=== PATIENT | female | born 1965 | race Caucasian/White ===

== ENCOUNTER 2018-03-22 10:41 | Inpatient (IN) | payer BC ==
--- OUTSIDE RECORDS SUMMARY | 2018-03-22 11:11 | XMS REPORT ---
:1965 External Reference #:[id number] Author Organization [employer] Address [address] [place] [address] [place] [address] Phone [phone] Care Team Providers Name Role Phone Adilene Carter MD Primary Care Physician Unavailable Payers Type Date Identification Payment Subscriber Numbers Provider Health Maintenance Effective: Policy Number: [facility] ([facility]) 06/29/2016 [id number] [employer] Group Number: [id number] [address] [address] PayID: [id number] [place] [id number] Medigap Part B Expires: 06/28/2012 Policy Number: Fer Gay [id number] Group Number: [id number] [address] PayID: [id number] [place] [address] Problems Description No Information Family History Date Family Member(s) Problem(s) Comments General Cancer General Thyroid Disease Social History Type Date Description Comments Marital Status 2 Times Lives With Occupation [place] ETOH Use Rarely consumes wine Smoking Patient has never smoked Recreational Drug Use Denies Drug Use Daily Caffeine Does Not Consume Caffeine Exercise Type/Frequency Exercises regularly Allergies, Adverse Reactions, Alerts Date Description Reaction Status Severity Comments 03/19/2010 No Known Drug Allergy active Medications Medication Date Status Form Strength Qnty SIG Indications Ordering Provider Cephalexin 03/09/ Active Tablets 500mg 21tabs 1 by mouth Siomara 2017 three B. times a [place], day [employer] Vitamin D 00// Active 1000units Unknown 0000 two daily Valacyclovir / Active Tablets 500mg 90tabs 1 by mouth Unknown HCL 0000 every day Progesterone / Active Capsules 100mg 90caps 1 by mouth Unknown Micronized 0000 every day Magnesium / Active Tablets 1 by mouth Unknown 0000 every day Multi Vitamin 00/ Active Tablets 1 by mouth Unknown 0000 every day Aviane 11/12/ Hx Tablets 0.1-20mg-m 28tabs 1 po qd Hortensia 2010 - cg Kelli, 02/10/ Ginny, FACP 2010 Famciclovir 09/01/ Hx Tablets 250mg 60tabs Take One Hortensia 2010 - Tablet By Kelli, 12/01/ Mouth Ginny, FACP 2013 Twice Daily Famvir 03/19/ Hx Tablets 250mg 1 tablet Hortensia 2009 - twice a Kelli, 09/01/ day as Ginny, FACP 2010 needed Retin-A / Hx Cream 0.025% 45G apply Unknown 0000 - sparingly to 2013 affected areas at bedtime Divigel / Hx Gel 0.25mg/0.2 as Unknown 0000 5GM directed Estradiol / Hx Patches 0.075mg/24 1 patch Unknown 0000 Weekly HR twice a week Immunizations CPT Code Status Date Vaccine Lot # [id number] Given 04/11/2009 Influenza Virus 3Yrs & Over Vital Signs Date Vital Result Comment 03/09/2018 Heart Rate 72 /min Respiratory Rate 16 /min Body Temperature 97.2 F 02/17/2018 Height 64.5 inches 5'4.50" Weight 145.00 lb Heart Rate 62 /min BP Systolic 114 mmHg BP Diastolic 80 mmHg Respiratory Rate 16 /min Body Temperature 97.8 F BMI (Body Mass Index) 24.5 kg/m2 12/02/2013 Height 64 inches 5'4" Weight 136.00 lb Heart Rate 76 /min BMI (Body Mass Index) 23.3 kg/m2 11/06/2010 Height 63.75 inches 5'3.75" Weight 129.00 lb Heart Rate 62 /min BP Systolic Sitting 110 mmHg BP Diastolic Sitting 70 mmHg Body Temperature 99.1 F BMI (Body Mass Index) 22.3 kg/m2 09/16/2010 Weight 129.00 lb Heart Rate 70 /min BP Systolic 104 mmHg BP Diastolic 70 mmHg 08/08/2010 Weight 129.00 lb Heart Rate 84 /min BP Systolic 138 mmHg BP Diastolic 82 mmHg 04/02/2010 Weight 125.00 lb Heart Rate 80 /min BP Systolic 118 mmHg BP Diastolic 78 mmHg Results Description No Information Procedures Date CPT Code Description Status 03/05/2018 41911 Fluoroscopic Guidance For Cent Completed 03/05/2018 76757 Biopsy/Excision Deep Axillary Node(S) Completed 03/05/2018 11815 Insertion Tunneled Cent Venous Cathr W Subcut Port 5 Completed Yrs Or Oldr 03/05/2018 14285 Mastectomy Partial Completed 03/05/2018 Mammogram Completed 02/22/2018 76559 ECHO Transthorasic Realtime 2D W Doppler & Color Flow Completed Hosp 02/11/2018 Mammogram Completed 02/08/2018 Mammogram Completed 11/06/2010 56399 Endometrial Sampling W Or W/O Endocervical BX W Or W/O Completed Cerv Dilat 09/13/2010 Colonoscopy Completed 04/12/2010 Mammogram Completed 04/12/2009 Mammogram Completed 04/11/2009 88070 EKG Tracing & Interpretation Completed Encounters Type Date Location Provider CPT E/M Dx Office Visit 02/17/2018 [facility], 53544 C50.411 11:00a Harris HINDS Office Visit 02/19/2016 [facility] [address] G43.109 1:18p Office Visit 12/02/2013 [facility], 41495 845.00 3:00p C.M.A. M.D. Office Visit 09/16/2010 DO Not Use [facility] Leadperson-Javi Estrella, 17518 780.79 8:30a N.P. 627.2 626.4 Office Visit 08/08/2010 4:00p DO Not Use [facility] Leadperson-Lynncharlie Pereira 88976 784.0 M.D., FACP 780.79 564.1 625.3 Office Visit 04/02/2010 9:15a DO Not Use [facility] Leadperson-Javi Pereira 27398 780.79 M.D., FACP 564.1 Office Visit 05/16/2009 11:45a DO Not Use [facility] Leadperson-Javi Pereira, 48350 272.0 M.D., FACP Office Visit 04/11/2009 1:15p DO Not Use Alisha Pereira, 73877 V72.31 M.D., FACP 272.4 787.20 285.9 V04.81 Office Visit 08/16/2007 11:00a DO Not Use Lolly Martínez, 33501 789.07 [place] Leadperson-Javi Gross 780.79 Office Visit 07/08/2007 9:30a DO Not Use [facility] Leadperson-Lynn Deb Estrella, N.P. 75212 462 465.9 Office Visit 01/18/2007 1:30p DO Not Use Deb Estrella, 25150 625.9 [facility] Leadperson-Lynn N.P. Office Visit 04/16/2006 3:15p DO Not Use Hortensia Pereira M.D., 25646 V72.31 [place] Leadperson-Lynn FACP V76.41 Plan of Care Future Appointment(s):03/15/2018 2:45 pm - [facility] MD at [facility]03/09/2018 - Siomara Kam, NPC50.411 Malig neoplm of upper-outer quadrant of right female breastFollow up:HAS APPT 03/15T81.4xxA Infection following a procedure, initial encounter
--- OUTSIDE RECORDS SUMMARY | 2018-03-22 11:11 | XMS REPORT ---
:1965 External Reference #:[id number] Author Organization [employer] Address [address] [place] [address] [place] [address] Phone [phone] Care Team Providers Name Role Phone Adilene Carter MD Primary Care Physician Unavailable Payers Type Date Identification Payment Subscriber Numbers Provider Health Maintenance Effective: Policy Number: [facility] [place] 06/29/2016 [id number] [employer] Group Number: [id number] [address] [address] PayID: [id number] [place] [id number] Medigap Part B Expires: 06/28/2012 Policy Number: Fer Gay [id number] Group Number: [id number] [address] PayID: [id number] [place] [address] Problems Description No Information Family History Date Family Member(s) Problem(s) Comments General Cancer General Thyroid Disease Social History Type Date Description Comments Marital Status 2 Times Lives With Occupation [place] ETOH Use Rarely consumes wine Smoking Patient [...] 2017 three B. times a [place], day [employer] Vitamin D 00// Active 1000units Unknown 0000 [...] Hortensia 2010 - cg Kelli, 02/10/ [facility] Famciclovir 09/01/ Hx Tablets 250mg 60tabs Take One Hortensia 2010 - Tablet By Kelli, 12/01/ Mouth Ginny, FACP 2013 Twice Daily Famvir 03/19/ Hx Tablets 250mg 1 tablet Hortensia 2009 - twice a Kelli, 09/01/ day as Ginny, [facility] 2010 needed Retin-A / Hx Cream 0.025% 45G apply Unknown 0000 - sparingly to 2013 affected areas at bedtime Divigel / Hx Gel 0.25mg/0.2 as Unknown 0000 5GM directed Estradiol / Hx Patches 0.075mg/24 1 patch Unknown 0000 Weekly HR twice a week Immunizations CPT Code Status Date Vaccine Lot # [id number] Given 04/11/2009 Influenza Virus 3Yrs & Over Vital Signs Date Vital Result Comment 03/11/2018 Heart Rate 90 /min Respiratory Rate 16 /min Body Temperature 98.4 F 03/09/2018 Heart Rate 72 /min Respiratory Rate [...] 118 mmHg BP Diastolic 78 mmHg Results Test Date Test Result H/L Range Note Laboratory test 03/05/2018 Surgical Pathology SEE RESULT BELOW 1 finding 1 SEE RESULT BELOW Name: CHERRYBEL PASCUAL : [address]: [facility] MD Acct: [id number] Unit: [id number] AGE: 52 Location: OR Re03/05/18 SEX: F Status: REG SDC SPEC: [id number] SIMONE: 03/05/18-[address] [facility] [address]: [facility]id MD REQ: [id number] RECD: 03/05/18 STATUS: BRYSON VALENTIN DR: Rubio Garzon, [employer] _ ORDERED: LEVEL 4, LEVEL 5/3, IMMUNO-FIRST FINAL DIAGNOSIS 1. Breast, right, needle localization excision: -- Invasive ductal adenocarcinoma of breast, with: Size: 16 mm. See comment. Overall [place] grade: 3/3 (8/9 points). Tubule formation: 2. Nuclear grade: 3. Mitotic count: 3. Margins: Tumor approaches to within 1 mm of the mid superior anterior margin (slide C) and to within 2 mm of the inferior anterior margin (slide D). All other margins are clear by greater than 5 mm. Lymphovascular invasion: Not seen. Skin: N/A. Chest-wall / pectoralis involvement: N/A. Ductal carcinoma in situ (DCIS): Focally present. Size: 2 mm. Architectural pattern: micropapillary and solid Nuclear grade: 2 Necrosis present: not seen Margins: All margins clear of DCIS by greater than 5 mm ER, GA, Her2/dimitri by immunohistochemistry with appropriate controls: ER: Negative. GA: Negative. Her2/dimitri: Negative (1+). See comment. Microcalcifications: Not identified. Other findings: None. pTNM histopathologic stage: pT 1C N 0 M N/A. 2. Breast, right, additional tissue 2 per medial from first specimen, excision: -- Benign breast tissue. -- No neoplasia identified. 3. Axilla, right, non-sentinel lymph nodes, excision: -- Four lymph nodes with no tumor seen (0/4). CONTINUED ON NEXT PAGE DEPARTMENT OF PATHOLOGY, [address] [place] [address] Rubio Razo M.D. Director [facility] # [id number] RUN DATE: 03/10/18 [facility] LAB LIVE PAGE 2 Patient: CHERRYBELWOODROW GARNER [id number] (Continued) FINAL DIAGNOSIS (Continued) 3. Axilla, right, sentinel lymph node biopsy: -- One lymph node with no tumor seen (0/1). See comment. Comment: The microscopic features are most indicative of a single multilobed primary tumor rather than multiple foci of tumor as suggested by gross examination only. This is reflected in the final measurements and T stage of this malignancy. Hormone receptor studies reported in part 1 are from previous biopsy case [id number]. Dr. Garcia has reviewed this case and concurs. Per sentinel lymph node protocol multiple level sections as well as him histochemical stains for pankeratin with appropriate control were performed on part 4 and support the above rendered diagnosis. PRE-OPERATIVE DIAGNOSIS Malignant neoplasm of upper-outer quadrant of right female breast, 1) usual markings 2) usual markings GROSS DESCRIPTION 1. The specimen is received fresh labeled, Excision of Right Breast Cancer , Usual Markings, and consists of an 8.9 x 6.0 x 3.6 cm yellow-pink ovoid portion of fibrofatty soft tissue with three attached sutures which are designated as follows: long- lateral, short-superior and medium-medial. The specimen is partially surfaced by a 2.7 x 0.5 cm dominguez-white skin ellipse on the inferolateral surface. There is a localization wire entering the specimen through the skin ellipse and exiting the specimen at the superior anterolateral surface. There is a 0.8 x 0.7 x 0.6 cm dominguez-pink well defined indurated nodule within the superior to mid specimen associated with the localization wire, 0.4 cm from the supra-medial margin. Additionally, there is a 0.8 x 0.8 x 0.5 cm seemingly discrete dominguez- pink nodule, 0.1 CONTINUED ON NEXT PAGE DEPARTMENT OF PATHOLOGY, [address] [place] [address] Rubio Razo M.D. Director [facility] # [id number] RUN DATE: 03/10/18 [facility] LAB LIVE PAGE 3 Patient: BEL GAY [id number] (Continued) GROSS DESCRIPTION (Continued) GROSS DESCRIPTION (Continued) cm supra-medial from the previously described nodule and 0.1 cm from the supra-medial margin. The remaining cut surface consists predominantly of yellow focally hemorrhagic lobulated adipose tissue with mild interspersed dominguez-white fibrous tissue. The specimen is inked as follows: lateral half-green, medial half-blue and deep-black, serially sectioned from superior to inferior and retail account representative sections are submitted in cassettes A through J to include indurated nodule in cassettes D and E and discrete nodule in cassettes C and D. 2. The specimen is received in formalin labeled, Additional Tissue Supra- Medial from First Specimen, Usual Markings, and consists of a 5.3 x 4.2 x 3.1 cm yellow ovoid portion of fibrofatty soft tissue with three attached sutures which are designated as follows: long-lateral, short-superior and medium-medial. The lateral margin is presumed the false margin. The cut surface consists predominantly of yellow lobulated adipose tissue with a small amount of interspersed focally dense fibrous tissue. A discrete lesion is not identified. The true margin is inked as follows: superior anterior-blue, inferior anterior-green and deep-black, the specimen is inked from superior to inferior and retail account representative sections are submitted in cassettes A through J. 3. The specimen is received in formalin labeled, Non-Moffat Lymph Nodes Right Breast, and consists of a 2.8 x 2.7 x 0.8 cm aggregate of yellow irregular adipose tissue fragments. Within the aggregate there are a few brown-sun possible lymph nodes ranging from 0.4 cm to 1.2 cm in greatest dimension. The lymph nodes are entirely submitted in cassettes A through C as follows: A-two whole lymph nodes, B-one bisected lymph node and C-one trisected lymph node. 4. The specimen is received in formalin labeled, Moffat Lymph Node Right Breast, and consists of a 0.9 x 0.5 x 0.5 cm dominguez-sun lymph node with abundant adherent yellow fat. The lymph node is trisected and entirely submitted in one cassette. Signed by and Reported on: Rubio Razo MD 06/15 1108 END OF REPORT DEPARTMENT OF PATHOLOGY, [address] [place] [address] Rubio Razo M.D. Director [facility] # [id number] Procedures Date CPT Code Description Status 03/05/2018 11018 Fluoroscopic Guidance For Cent Completed 03/05/2018 44710 Biopsy/Excision Deep Axillary Node(S) Completed 03/05/2018 96249 Biopsy/Excision Deep Axillary Node(S) Completed 03/05/2018 57861 Insertion Tunneled Cent Venous Cathr W Subcut Port 5 Completed Yrs Or Oldr 03/05/2018 03275 Insertion Tunneled Cent Venous Cathr W Subcut Port 5 Completed Yrs Or Oldr 03/05/2018 95338 Mastectomy Partial Completed 03/05/2018 95478 Mastectomy Partial Completed 03/05/2018 Mammogram Completed 02/22/2018 68942 ECHO Transthorasic Realtime 2D W Doppler & Color Flow Completed Hosp 02/11/2018 Mammogram Completed 02/08/2018 Mammogram Completed 11/06/2010 05743 Endometrial Sampling W Or W/O Endocervical BX W Or W/O Completed Cerv Dilat 09/13/2010 Colonoscopy Completed 04/12/2010 Mammogram Completed 04/12/2009 Mammogram Completed 04/11/2009 50659 EKG Tracing & Interpretation Completed Encounters Type Date Location Provider CPT E/M Dx Office Visit 02/17/2018 [facility], 72670 C50.411 11:00a Harris HINDS Office Visit 02/19/2016 [place] [address] G43.109 1:18p Office Visit 12/02/2013 [facility], 18495 845.00 3:00p C.M.A. M.D. Office Visit 09/16/2010 DO Not Use Services Coordinator[facility] Deb Estrella, 52492 780.79 8:30a N.P. 627.2 626.4 Office Visit 08/08/2010 4:00p DO Not Use Services [facility] Hortensia Pereira, 83096 784.0 M.D., FACP 780.79 564.1 625.3 Office Visit 04/02/2010 9:15a DO Not Use Services Coord[facility] Hortensia Pereira, 03610 780.79 M.D., FACP 564.1 Office Visit 05/16/2009 11:45a DO Not Use Services [facility] Hortensia Pereira, 03591 272.0 M.D., FACP Office Visit 04/11/2009 1:15p DO Not Use Services Coord[facility] Hortensia Pereira, 17185 V72.31 M.D., FACP 272.4 787.20 285.9 V04.81 Office Visit 08/16/2007 11:00a DO Not Use Lolly Martínez, 31073 789.07 Services Coordinator[facility] M.D. 780.79 Office Visit 07/08/2007 9:30a DO Not Use Services Coord[facility] Deb Estrella, N.P. 57490 462 465.9 Office Visit 01/18/2007 1:30p DO Not Use Deb Estrella 63767 625.9 Services Coordinator[facility] N.P. Office Visit 04/16/2006 3:15p DO Not Use Hortensiamikayla Pereira, M.D., 42533 V72.31 [facility] V76.41 Plan of Care No Information Available
--- OUTSIDE RECORDS SUMMARY | 2018-03-22 11:11 | XMS REPORT ---
:1965 External Reference #:[id number] Author Organization [employer] Address [address] [place] [address] [place] [address] Phone [phone] Care Team Providers Name Role Phone Adilene Carter MD Primary Care Physician Unavailable Payers Type Date Identification Payment Subscriber Numbers Provider Health Maintenance Effective: Policy Number: [facility] ([facility]) 06/29/2016 [id number] Victor Hugo Group Number: [id number] [address] [address] PayID: [id number] [place] [address] Medigap Part B Expires: 06/28/2012 Policy Number: Fer Gay [id number] Group Number: [id number] [address] PayID: [id number] [place] [address] Problems Description No Information Family History Date Family Member(s) Problem(s) Comments General Cancer General Thyroid Disease Social History Type Date Description Comments Marital Status 2 Times Lives With Occupation [employer] ETOH Use Rarely consumes wine Smoking Patient has never smoked Recreational Drug Use Denies Drug Use Daily Caffeine Does Not Consume Caffeine Exercise Type/Frequency Exercises regularly Allergies, Adverse Reactions, Alerts Date Description Reaction Status Severity Comments 03/19/2010 No Known Drug Allergy active Medications Medication Date Status Form Strength Qnty SIG Indications Ordering Provider Zofran Odt 03/11/ Active Tablets 4mg 12tabs 1 tab po q Mariajose Isidro 2018 Dispers 6 hr prn MD Kleber nausea Cephalexin 03/09/ Active Tablets 500mg 21tabs 1 by mouth Siomara 2018 three B. times a [place], day DAIRY CATTLE FARM WORKER Vitamin D / Active 1000units Unknown 0000 two daily Valacyclovir 00/00/ Active Tablets 500mg 90tabs 1 by mouth Unknown HCL 0000 every day Progesterone 00/ Active Capsules 100mg 90caps 1 by mouth Unknown Micronized 0000 every day Magnesium 00/00/ Active Tablets 1 by mouth Unknown 0000 every day Multi Vitamin 00/ Active Tablets 1 by mouth Unknown 0000 every day Aviane 11/12/ Hx Tablets 0.1-20mg-m 28tabs 1 po qd Hortensia 2010 - cg Kelli, 02/10/ MSoco, FACP 2010 Famciclovir 09/01/ Hx Tablets 250mg 60tabs Take One Hortensia 2010 - Tablet By Kelli, 12/01/ Mouth M.DIna, FACP 2013 Twice Daily Famvir 03/19/ Hx Tablets 250mg 1 tablet Hortensia 2009 - twice a Kelli, 09/01/ day as M.D., FACP 2010 needed Retin-A / Hx Cream 0.025% 45G apply Unknown 0000 - sparingly 2013 affected areas at bedtime Divigel / Hx Gel 0.25mg/0.2 as Unknown 0000 5GM directed Estradiol / Hx Patches 0.075mg/24 1 patch Unknown 0000 Weekly HR twice a week Immunizations CPT Code Status Date Vaccine Lot # [id number] Given 04/11/2009 Influenza Virus 3Yrs & Over Vital Signs Date Vital Result Comment 03/15/2018 Heart Rate 72 /min Respiratory Rate 16 /min Body Temperature 97.8 F 03/11/2018 Heart Rate 90 /min Respiratory Rate [...] 1 finding 1 SEE RESULT BELOW Name: BEL GAY : [address]: Mariajose Shahid MD Acct: [id number] Unit: [id number] AGE: 52 Location: OR Re03/05/18 SEX: F Status: REG SDC SPEC: [id number] SIMONE: 03/05/[address] [facility] [address]: Mariajose Shahid MD REQ: [id number] RECD: 03/05/180048 STATUS: BRYSON VALENTIN 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 Breast, right, needle localization excision: -- Invasive ductal adenocarcinoma of breast, with: Size: 16 mm. See comment. Overall [place] grade: 3/3 (8/9 points). Tubule formation: 2. [...] DCIS by greater than 5 mm ER, OH, Her2/dimitri by immunohistochemistry with appropriate controls: ER: Negative. OH: Negative. Her2/dimitri: Negative (1+). See comment. Microcalcifications: Not identified. Other findings: None. pTNM histopathologic stage: pT 1C N 0 M N/A. 2. Breast, right, additional tissue supra-medial from first specimen, excision: -- Benign breast tissue. -- No neoplasia identified. CONTINUED ON NEXT PAGE DEPARTMENT OF PATHOLOGY, [address] [place] [address] Rubio Razo M.D. Director [facility] # [id number] RUN DATE: 03/11/18 [facility] LAB LIVE PAGE 2 Patient: BEL GAY [id number] (Continued) FINAL DIAGNOSIS (Continued) 3. Axilla, right, non-sentinel lymph nodes, excision: -- Four lymph nodes with no tumor seen (0/4). 3. Axilla, right, sentinel lymph node biopsy: [...] 1 are from previous biopsy case [id number]. Dr. Garcia has reviewed this case and [...] dominguez-pink well defined indurated nodule within the CONTINUED ON NEXT PAGE DEPARTMENT OF PATHOLOGY, [address] [place] [address] Rubio Razo M.D. Director [facility] # [id number] RUN DATE: 03/11/18 [facility] LAB LIVE PAGE 3 Patient: BEL GAY [id number] (Continued) GROSS DESCRIPTION (Continued) GROSS DESCRIPTION (Continued) superior to mid specimen associated with the localization wire, 0.4 cm from the supra-medial margin. Additionally, there is a 0.8 x 0.8 x 0.5 cm seemingly discrete dominguez- pink nodule, 0.1 cm supra-medial from the previously described nodule and 0.1 cm from the supra-medial margin. The remaining cut surface consists predominantly of yellow focally hemorrhagic lobulated adipose tissue with mild interspersed dominguez-white fibrous tissue. The specimen is inked as follows: lateral half-green, medial half-blue and deep-black, serially sectioned from superior to inferior and clearance representative sections are submitted in cassettes A [...] is inked from superior to inferior and clearance representative sections are submitted in cassettes A through J. 3. The specimen is received in formalin labeled, Non-[place] Lymph Nodes Right Breast, and consists of [...] The specimen is received in formalin labeled, [place] Lymph Node Right Breast, and consists of a 0.9 x 0.5 x 0.5 cm dominguez-sun lymph node with abundant adherent yellow fat. The lymph node is trisected and entirely submitted in one cassette. Signed by and Reported on: Rubio Razo MD 1510 END OF REPORT DEPARTMENT OF PATHOLOGY, [address] [place] [address] Rubio Razo M.D. Director [facility] # [id number] Procedures Date CPT Code Description Status 03/05/2018 82315 Fluoroscopic Guidance For Cent Completed 03/05/2018 99112 Biopsy/Excision Deep Axillary Node(S) Completed 03/05/2018 06007 Biopsy/Excision Deep Axillary Node(S) Completed 03/05/2018 89518 Insertion Tunneled Cent Venous Cathr W Subcut Port 5 Completed Yrs Or Oldr 03/05/2018 39840 Insertion Tunneled Cent Venous Cathr W Subcut Port 5 Completed Yrs Or Oldr 03/05/2018 61714 Mastectomy Partial Completed 03/05/2018 73669 Mastectomy Partial Completed 03/05/2018 Mammogram Completed 02/22/2018 90643 ECHO Transthorasic Realtime 2D W Doppler & Color Flow Completed Hosp 02/11/2018 Mammogram Completed 02/08/2018 Mammogram Completed 11/06/2010 70825 Endometrial Sampling W Or W/O Endocervical BX W Or W/O Completed Cerv Dilat 09/13/2010 Colonoscopy Completed 04/12/2010 Mammogram Completed 04/12/2009 Mammogram Completed 04/11/2009 19911 EKG Tracing & Interpretation Completed Encounters Type Date Location Provider CPT E/M Dx Office Visit 02/17/2018 [facility], [address] C50.411 11:00a Harris HINDS Office Visit 02/19/2016 [facility] [address] G43.109 1:18p Office Visit 12/02/2013 [facility], 35219 845.00 3:00p C.M.A. MSoco Office Visit 09/16/2010 DO Not Use [employer] Deb Estrella 73664 780.79 8:30a N.P. 627.2 626.4 Office Visit 08/08/2010 4:00p DO Not Use [employer] Hortensia Pereira 58848 784.0 M.D., FACP 780.79 564.1 625.3 Office Visit 04/02/2010 9:15a DO Not Use [employer] Hortensia Pereira 14618 780.79 M.D., FACP 564.1 Office Visit 05/16/2009 11:45a DO Not Use [employer] [facility] Hortensia Pereira 25657 272.0 M.D., FACP Office Visit 04/11/2009 1:15p DO Not Use [employer] [place] 17074 V72.31 M.D., FACP 272.4 787.20 285.9 V04.81 Office Visit 08/16/2007 11:00a DO Not Use Lolly Martínez, 24601 789.07 [employer] BrandynDIna 780.79 Office Visit 07/08/2007 9:30a DO Not Use [employer] Deb Estrella, N.P. 54087 462 465.9 Office Visit 01/18/2007 1:30p DO Not Use Deb Estrella, 22596 625.9 [employer] N.P. Office Visit 04/16/2006 3:15p DO Not Use Hortensia Pereira M.D., 54258 V72.31 [employer] [facility] V76.41 Plan of Care Future Appointment(s):03/24/2018 8:30 am - Mariajose Shahid MD at [facility]03/15/2018 - Mariajose Shahid, MDC50.411 Malig neoplm of upper- outer quadrant of right female breastFollow up:1 week
--- OUTSIDE RECORDS SUMMARY | 2018-03-22 11:11 | XMS REPORT ---
:1965 External Reference #:[id number] Author Organization [employer] Address [address] [place] [address] [place] [address] Phone [phone] Care Team Providers Name Role Phone Adilene Carter MD Primary Care Physician Unavailable Payers Type Date Identification Payment Subscriber Numbers Provider Health Maintenance Effective: Policy Number: [facility] ([facility]) 06/29/2016 [id number] [employer] Group Number: [id number] [address] [address] PayID: [id number] [place] [address] Medigap Part B Expires: 06/28/2012 Policy Number: Fer Carey [id number] Group Number: [id number] [address] PayID: [id number] [place] [address] Problems Description No Information Family History Date Family Member(s) Problem(s) Comments General Cancer General Thyroid Disease Social History Type Date Description Comments Marital Status 2 Times Lives With Occupation [place] ETOH Use Rarely consumes wine Smoking Patient [...] 4mg 12tabs 1 tab po q Mariajose Pascual 2017 Dispers 6 hr prn MD Kleber nausea Vitamin D 00/00/ Active 1000units Unknown 0000 two daily Valacyclovir 00/00/ Active Tablets 500mg 90tabs 1 by mouth Unknown HCL 0000 every day Progesterone 0000/ Active Capsules 100mg 90caps 1 by mouth Unknown Micronized 0000 every day Magnesium 00/ Active Tablets 1 by mouth Unknown 0000 every day Multi Vitamin 00/ Active Tablets 1 by mouth Unknown 0000 every day Bactrim DS / Active Tablets 800-160mg 1 by mouth Unknown 0000 twice a day Align / Active Capsules 4mg 1 by mouth Unknown 0000 every day Cephalexin 03/09/ Hx Tablets 500mg 21tabs 1 by mouth Siomara 2017 three B. 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[place], day MOWER MECHANIC Aviane 11/12/ Hx Tablets 0.1-20mg-m 28tabs 1 po qd Hortensia 2010 - cg Kelli, 02/10/ MSoco, FACP 2010 Famciclovir 09/01/ Hx Tablets 250mg 60tabs Take One Hortensia 2010 - Tablet By Kelli, 12/01/ Mouth MSoco, FACP 2013 Twice Daily Famvir 03/19/ Hx Tablets 250mg 1 tablet Hortensia 2009 - twice a Kelli, 09/01/ day as M.Sunshine, FACP 2010 needed Retin-A / Hx Cream 0.025% 45G apply Unknown 0000 - sparingly 2013 affected areas at bedtime Divigel / Hx Gel 0.25mg/0.2 as Unknown 0000 5GM directed Estradiol / Hx Patches 0.075mg/24 1 patch Unknown 0000 Weekly HR twice a week Immunizations CPT Code Status Date Vaccine Lot # 62736 Given 04/11/2009 Influenza Virus 3Yrs & Over Vital Signs Date Vital Result Comment 03/22/2018 Heart Rate 76 /min BP Systolic 120 mmHg BP Diastolic 82 mmHg Respiratory Rate 18 /min Body Temperature 96.8 F 03/15/2018 Heart Rate 72 /min Respiratory Rate [...] finding 1 SEE RESULT BELOW Name: BEL CAREY : [address]: Mariajose Shahid MD Acct: [id number] Unit: [id number] AGE: 52 Location: OR Re03/05/18 SEX: F Status: REG 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 Breast, right, needle localization excision: -- Invasive ductal adenocarcinoma of breast, with: Size: 16 mm. See comment. Overall Painter grade: 3/3 (8/9 points). Tubule formation: 2. [...] DCIS by greater than 5 mm ER, NE, Her2/dimitri by immunohistochemistry with appropriate controls: ER: Negative. NE: Negative. Her2/dimitri: Negative (1+). See comment. Microcalcifications: Not identified. Other findings: None. pTNM histopathologic stage: pT 1C N 0 M N/A. 2. Breast, right, additional tissue supra-medial from first specimen, excision: -- Benign breast tissue. -- No neoplasia identified. CONTINUED ON NEXT PAGE DEPARTMENT OF PATHOLOGY, [address] [place] [address] Rubio Razo M.D. Director [facility] # [id number] RUN DATE: 03/11/18 [facility] LAB LIVE PAGE 2 Patient: CHERRYBELWOODROW GARNER [id number] (Continued) FINAL DIAGNOSIS (Continued) 3. Axilla, right, [...] 1 are from previous biopsy case [id number]. Dr. Garcia has reviewed this case and [...] CONTINUED ON NEXT PAGE DEPARTMENT OF PATHOLOGY, [address] [place] [address] Rubio Razo M.D. Director [facility] # [id number] RUN DATE: 03/11/18 [facility] LAB LIVE PAGE 3 Patient: HERMANBEL Carney PASCUAL [id number] (Continued) GROSS DESCRIPTION (Continued) GROSS DESCRIPTION (Continued) [...] hemorrhagic lobulated adipose tissue with mild interspersed dmoinguez-white fibrous tissue. The specimen is inked as follows: lateral half-green, medial half-blue and deep-black, serially sectioned from superior to inferior and energy conservation representative sections are submitted in cassettes A [...] is inked from superior to inferior and energy conservation representative sections are submitted in cassettes A through J. 3. The specimen is received in formalin labeled, Non-[place] Lymph Nodes Right Breast, and consists of [...] The specimen is received in formalin labeled, [place] Lymph Node Right Breast, and consists of a 0.9 x 0.5 x 0.5 cm dominguez-sun lymph node with abundant adherent yellow fat. The lymph node is trisected and entirely submitted in one cassette. Signed by and Reported on: Rubio Razo MD 1510 END OF REPORT DEPARTMENT OF PATHOLOGY, [address] [place] [address] Rubio Razo M.D. Director [facility] # [id number] Procedures Date CPT Code Description Status 03/05/2018 65606 Fluoroscopic Guidance For Cent Completed 03/05/2018 39240 Biopsy/Excision Deep Axillary Node(S) Completed 03/05/2018 73853 Biopsy/Excision Deep Axillary Node(S) Completed 03/05/2018 03786 Insertion Tunneled Cent Venous Cathr W Subcut Port 5 Completed Yrs Or Oldr 03/05/2018 15963 Insertion Tunneled Cent Venous Cathr W Subcut Port 5 Completed Yrs Or Oldr 03/05/2018 41489 Mastectomy Partial Completed 03/05/2018 85775 Mastectomy Partial Completed 03/05/2018 Mammogram Completed 02/22/2018 13711 ECHO Transthorasic Realtime 2D W Doppler & Color Flow Completed Hosp 02/11/2018 Mammogram Completed 02/08/2018 Mammogram Completed 11/06/2010 33210 Endometrial Sampling W Or W/O Endocervical BX W Or W/O Completed Cerv Dilat 09/13/2010 Colonoscopy Completed 04/12/2010 Mammogram Completed 04/12/2009 Mammogram Completed 04/11/2009 18991 EKG Tracing & Interpretation Completed Encounters Type Date Location Provider CPT E/M Dx Office Visit 02/17/2018 [facility], 56681 C50.411 11:00a Harris HINDS Office Visit 02/19/2016 [place] [address] G43.109 1:18p Office Visit 12/02/2013 [facility], 36776 845.00 3:00p C.M.A. M.D. Office Visit 09/16/2010 DO Not Use [employer] Estrella 71086 780.79 8:30a N.P. 627.2 626.4 Office Visit 08/08/2010 4:00p DO Not Use [facility] Pe[place] 26787 784.0 M.D., FACP 780.79 564.1 625.3 Office Visit 04/02/2010 9:15a DO Not Use [employer] Pereira 49026 780.79 M.D., FACP 564.1 Office Visit 05/16/2009 11:45a DO Not Use [employer] Pereira 90090 272.0 M.D., FACP Office Visit 04/11/2009 1:15p DO Not Use Lock ExpertAbel Pereira 49331 V72.31 M.D., FACP 272.4 787.20 285.9 V04.81 Office Visit 08/16/2007 11:00a DO Not Use Lolly Martínez, 87415 789.07 Alisha Gross 780.79 Office Visit 07/08/2007 9:30a DO Not Use [employer] Deb Varn, N.P. 11930 462 465.9 Office Visit 01/18/2007 1:30p DO Not Use Deb Estrella, 39153 625.9 [employer] N.P. Office Visit 04/16/2006 3:15p DO Not Use Hortensia Pereira M.D., 50916 V72.31 [employer] FACP V76.41 Plan of Care 03/15/2018 - Mariajose Shahid, MDC50.411 Malig neoplm of upper-outer quadrant of right female breastFollow up:1 week
--- NOTE | 2018-03-22 11:18 | ED ---
Shortness of Breath - HPI Summary HPI Summary: This pt is a 52 y/o female presenting to [facility] referred by Dr. Shahid c/o SOB and pain beginning from right side of neck radiating down her chest and down her back since yesterday s/p lumpectomy on March 05. Pt states her lumpectomy was done by Dr. Shaihd with an incision on the right side with anesthesia. Pt reports yesterday she began to have a sharp pain with deep breathing, specially behind her right shoulder blade. Additionally she notes SOB on minimal exertion. Pt denies baseline SOB on exertion. Denies nausea, vomiting, fever. She went to see Dr. Shahid this morning and was referred to the ED to rule out PE. Pt is currently on Bactrim (to prevent infection from lumpectomy), valacyclovir , and magnesium. She drinks wine occasionally. Denies tobacco or drug use. - History of Current Complaint Chief Complaint: EDShortnessOfBreath Time Seen by Provider: 03/22/18 11:03 Hx Obtained From: Patient Onset/Duration: Lasting Days - 1, Still Present Timing: Constant Current Severity: Mild Dyspnea At: Exertion Aggrevating Factors: Deep Breaths Alleviating Factors: Other - rest Associated Signs & Symptoms: Chest Pain Unrelated to Cough - and right shoulder blade pain - Allergy/Home Medications Allergies/Adverse Reactions: Allergies Allergy/AdvReac Type Severity Reaction Status Date / Time No Known Allergies Allergy Verified 03/22/18 10:57 Home Medications: Home Medications Magnesium Oxide TAB* [MagOx 400 TAB*] 400 mg PO DAILY 03/22/18 [History Confirmed 03/22/18] Multivitamins/Minerals TAB* [Theragran/minerals TAB*] 1 tab PO DAILY 03/22/18 [ History Confirmed 03/22/18] ValACYclovir (*) [Valtrex 1 GM(*)] 1 gm PO DAILY 03/22/18 [History Confirmed ] PMH/Surg Hx/FS Hx/Imm Hx Endocrine/Hematology History: Denies: Hx Diabetes, Hx Thyroid Disease Cardiovascular History: Denies: Hx Hypertension, Hx Pacemaker/ICD, Other Cardiovascular Problems/ Disorders Respiratory History: Denies: Hx Asthma, Hx Chronic Obstructive Pulmonary Disease (COPD), Other Respiratory Problems/Disorders GI History: Denies: Hx Hiatal Hernia, Hx Ulcer, Other GI Disorders History: Reports: Hx Kidney Stones - Lithotripsy 2008, last scan was negative for stone 09/13, Other Problems/Disorders - 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 Denies: Hx Renal Disease Musculoskeletal History: Denies: Other Musculoskeletal History Sensory History: Reports: Hx Contacts or Glasses - Glasses Denies: Hx Hearing Aid Opthamlomology History: Reports: Hx Contacts or Glasses - Glasses Neurological History: Reports: Hx Migraine Denies: Other Neuro Impairments/Disorders Psychiatric History: Reports: Hx Anxiety Denies: Hx Panic Disorder - Cancer History Cancer Type, Location and Year: RIGHT BREAST-NO TREATMENT AT THIS TIME Hx Chemotherapy: No Hx Radiation Therapy: No - Surgical History Surgery Procedure, Year, and Place: KIDNEY STONE REMOVAL, lithotripsy. Pyloric Stenonis 6 weeks Hx Anesthesia Reactions: Yes - Nausea Infectious Disease History: No Infectious Disease History: Denies: Hx Clostridium Difficile, Hx Hepatitis, Hx Human Immunodeficiency Virus (HIV), Hx of Known/Suspected MRSA, Hx Shingles, Hx Tuberculosis, Traveled Outside the [place] in Last 30 Days - Family History Known Family History: Positive: Hypertension - Mother, Respiratory Disease - Father with COPD Family History: Mother with CA - Social History Alcohol Use: Occasionally Alcohol Amount: TID Substance Use Type: Reports: None Hx Tobacco Use: No Smoking Status (MU): Never Smoked Tobacco Have You Smoked in the Last Year: No Review of Systems Negative: Fever, Chills Positive: Chest Pain Respiratory: Other - right shoulder blade pain with deep breathing Positive: Shortness Of Breath Negative: Vomiting, Nausea All Other Systems Reviewed And Are Negative: Yes Physical Exam - Summary Physical Exam Summary: VITAL SIGNS: Reviewed. GENERAL: Patient is a well-developed and nourished female who is lying comfortable in the stretcher. Patient is not in any acute respiratory distress. HEAD AND FACE: No signs of trauma. No ecchymosis, hematomas or skull depressions. No sinus tenderness. EYES: PERRLA, EOMI x 2, No injected conjunctiva, no nystagmus. EARS: Hearing grossly intact. Ear canals and tympanic membranes are within normal limits. MOUTH: Oropharynx within normal limits. NECK: Supple, trachea is midline, no adenopathy, no JVD, no carotid bruit, no c- spine tenderness, neck with full ROM. CHEST: Symmetric, no tenderness at palpation LUNGS: Clear to auscultation bilaterally. No wheezing or crackles. CVS: Regular rate and rhythm, S1 and S2 present, no murmurs or gallops appreciated. ABDOMEN: Soft, non-tender. No signs of distention. No rebound, no guarding, and no masses palpated. Bowel sounds are normal. EXTREMITIES: FROM in all major joints, no edema, no cyanosis or clubbing. NEURO: Alert and oriented x 3. No acute neurological deficits. Speech is normal and follows commands. SKIN: Dry and warm. Incision on the left side of the right breast, that is dry, clean, and intact. Triage Information Reviewed: Yes Vital Signs On Initial Exam: Initial Vitals Temp Pulse Resp BP Pulse Ox 97.2 F 81 16 132/82 99 03/22/18 10:52 03/22/18 10:52 03/22/18 10:52 03/22/18 10:52 03/22/18 10:52 Vital Signs Reviewed: Yes Diagnostics - Vital Signs Vital Signs Temp Pulse Resp BP Pulse Ox 03/22/18 10:52 97.2 F 81 16 132/82 99 - Laboratory Result Diagrams: 03/22/18 11:26 03/22/18 11:26 Lab Statement: Any lab studies that have been ordered have been reviewed, and results considered in the medical decision making process. - CT CTA Chest CT Interpretation: Positive (See Comments) - IMPRESSION: Filling defect is noted in the right posterior subsegmental pulmonary artery as well as in the left lower lobe posterior subsegmental artery consistent with bilateral pulmonary emboli. Postoperative changes in the right breast. Findings discussed with Dr. Tran at 13:[address] Interpretation Completed By: Radiologist - EKG 11:23 Cardiac Rate: NL - st 69 bpm EKG Rhythm: Sinus Rhythm EKG Interpretation: No ST elevations. EKG Comparison: No Significant Change - similar to prior on 02/19/16. Course/Dx - Course Assessment/Plan: Patient is a 52-year-old female who presents to the emergency department after she was transferred from Dr. Shahid's office complaining of shortness of breath and right-sided chest pain. The patient had a lumpectomy from the right breast on March 05, 2018 and since then the patient has developed the symptoms described above. Dr. Shahid sent the patient to the emergency department to rule out a pulmonary embolism. EKG shows a sinus rhythm at [address] elevations. Blood work without any significant abnormality except for a slight anemia, glucose 111 and CRP of 24.5. Chest CTA : IMPRESSION: Filling defect is noted in the right posterior subsegmental pulmonary artery as well as in the left lower lobe posterior subsegmental artery consistent with bilateral pulmonary emboli. Postoperative changes in the right breast. In the ED course the patient was given IV fluids 30 cc's per kg and Rocephin. I discussed the case with Dr. Mon, from the hospitalist services, who accepted the patient for admission. The patient continues to be hemodynamically stable alert and oriented 3. - Diagnoses Differential Diagnosis/HQI/PQRI: Positive: Asthma, Bronchitis, CHF, COPD Exacerbation, OR, Pneumonia, Pulmonary Embolism, Pulmonary Edema Provider Diagnoses: Pulmonary embolism - Physician Notifications Discussed Care of Patient With: Nilson Mon Time Discussed With Above Provider: 13:44 Instructed by Provider To: Other - Discussed pt care with Dr. Mon, hospitalist, who accepted the pt for admission. - Critical Care Time Critical Care Time: 75-104 min Discharge - Sign-Out/Discharge Documenting (check all that apply): Patient Departure - Admit to [facility] All imaging exams completed and their final reports reviewed: Yes - Discharge Plan Condition: Stable Disposition: ADMITTED TO [facility] - Billing Disposition and Condition Condition: STABLE Disposition: Admitted to [facility] - Attestation Statements Document Initiated by Dash: Yes Documenting Scribe: Kia Rolle Provider For Whom Dash is Documenting (Include Credential): Júnior Tran MD Scribe Attestation: Kia Carney, scribed for Júnior Tran MD on 03/24/18 at 0744. Scribe Documentation Reviewed: Yes Provider Attestation: The documentation as recorded by the Kia shelton accurately reflects the service I personally performed and the decisions made by me, Júnior Tran MD
[2018-03-22 11:40] LABS: ABS Basophils 0 10^3/ul (0-0.2); ABS Eosinophils 0.1 10^3/ul (0-0.6); ABS Lymphocytes 1.1 10^3/ul (1.0-4.8); ABS Monocytes 0.4 10^3/ul (0-0.8); ABS Neutrophils 4.7 10^3/ul (1.5-7.7); ABS Nucleated RBC 0 10^3/ul; Eosinophil % 1.1 % (0-6); Hematocrit 34 % (35-47); Hemoglobin 11.7 g/dl (12.0-16.0); Lymphocyte % 17.8 % (25-47); Mean Corpuscular HGB Conc 35 g/dl (31-36); Mean Corpuscular Hemoglobin 35 pg (27-31); Mean Corpuscular Volume 101 fL (80-97); Mean Platelet Volume 7.9 um3 (7.4-10.4); Nucleated Red Blood Cells % 0; Platelet Count 178 10^3/ul (150-450); Red Blood Count 3.33 10^6/ul (4.00-5.40); Red Cell Distribution Width 13 % (10.5-15); White Blood Count 6.4 10^3/ul (3.5-10.8)
[2018-03-22 11:58] LABS: EGFR Non-African American 80.6 (>60)
[2018-03-22] MEDS ORDERED: Iohexol 350* (CONTRAST) 500 ML MDV IV ONE (12:05)
[2018-03-22] MEDS ORDERED: NS 0.9% 1000 ML*IV.FLUID IV ONE (13:11)
[2018-03-22] MEDS: cefTRIAXone(*) 1 GM in NS 0.9% 50 ML* 50 ML IVPB ONE ×2 (13:29→13:37)
[2018-03-22] MEDS ORDERED: cefTRIAXone(*) 1 GM ADVAN/BAG ONE (13:34)
--- NOTE | 2018-03-22 13:45 | RAD ---
Status post lumpectomy in the right chest. Contrast: Administered 62.0 ml of OMNIPAQUE 350 mg/ml CTA of the chest performed after IV contrast administration. Coronal and sagittal reconstructed images were obtained. The pulmonary arterial tree is well opacified. There is a filling defect in the right posterior subsegmental lower lobe artery. Additional filling defect is noted in the subsegmental pulmonary artery in the left lower lobe. The upper lobes demonstrates no evidence of pulmonary embolus. The thoracic aorta demonstrates no evidence of thoracic aortic dissection. Inferior thyroid lobes are unremarkable. The lung dunn demonstrate small right pleural effusion with dependent changes in the lung dunn. No alveolar consolidation is noted. Postoperative changes are noted in the right breast from prior lumpectomy. IMPRESSION: Filling defect is noted in the right posterior subsegmental pulmonary artery as well as in the left lower lobe posterior subsegmental artery consistent with bilateral pulmonary emboli. Postoperative changes in the right breast. Findings discussed with Dr. Tran at 1341 hours
[2018-03-22 14:09] LABS: Urine Appearance Clear; Urine Blood 2+ (Negative); Urine Color Straw; Urine Ketones Negative (Negative); Urine Protein Negative (Negative); Urine Red Blood Cell 3+(>10/hpf) (Absent); Urine Specific Gravity 1.041 (1.010-1.030); Urine Urobilinogen Negative (Negative); Urine White Blood Cell Trace(0-5/hpf) (Absent)
[2018-03-22] MEDS ORDERED: Enoxaparin(*) 60 MG/0.6 ML SYR SUBCUT ONE (14:47)
[2018-03-22] MEDS ORDERED: Magnesium Hydroxide LIQ* 30 ML UDC PO PRN (14:55)
[2018-03-22] MEDS ORDERED: oxyCODONE TAB* 5 MG TAB PO ONE (15:36)
--- NOTE | 2018-03-22 15:46 | RAD ---
Indication: Pulmonary emboli, bilateral leg pain Duplex Doppler sonography of the deep venous system of both lower extremities was performed. Bilaterally the common femoral veins, proximal greater saphenous veins, proximal deep femoral veins, femoral veins, popliteal veins, posterior tibial veins and peroneal veins appear patent and compressible. IMPRESSION: NO EVIDENCE OF DEEP VENOUS THROMBOSIS OF EITHER LOWER EXTREMITY IS PRESENT.
--- NOTE | 2018-03-22 19:41 | HP ---
CC: Dr. Adilene Santana; Dr. Dunn * ADMISSION HISTORY AND PHYSICAL: DATE OF ADMISSION: 03/22/18 PRIMARY CARE PROVIDER: Dr. Adilene Santana. ONCOLOGIST: Dr. Dunn. HEALTHCARE PROXY: Her . CODE STATUS: Full. SOURCE OF INFORMATION: History obtained from interview with patient, review of past medical records. RELIABILITY: Good. CHIEF COMPLAINT: Chest pain, GERD. HISTORY OF PRESENT ILLNESS: This is a 52-year-old female, recently found to have a 7 mm right breast nodule on mammogram, status post biopsy in January 2017 , followed by lumpectomy on 03/05/18 after biopsy results returned triple negative invasive ductal breast cancer. There has been some difficulty with wound healing and what sounds to be surgical site infection, for which the patient was treated with a week of Keflex followed by transition to Bactrim since last . Otherwise, the patient has been in her usual state of health, however yesterday she noted right- sided chest pain that was worse with movement and worse with deep inspiration. It was severe enough that she could not sleep. The pain was radiating to her right shoulder blade and neck. She noted yesterday, it was harder to walk from her car to the office secondary to pain and increased shortness of breath. She has had pain at rest, but no shortness of breath at rest. She has been a marathon runner in the past and so , her difficulty in walking from and to the office was notable. She called Dr. Dunn's office who referred her to the emergency room, instead the patient went and saw Dr. Shahid who then referred her to the emergency room where she was seen by this author. Of note, the patient had an episode of rectal bleeding in 2010. This was thought to be secondary to external hemorrhoids. She again had painless rectal bleeding in 2017 and underwent another colonoscopy with Dr. Freeman and was found to have cecal polyps as well as internal hemorrhoids. The rectal bleeding is noted to be worse when she is constipated and/or dehydrated and improves with hydration and prune juice. She only notices bleeding when she is straining to have a bowel movement and none in between staining her clothes or otherwise. Her last episode of bleeding was approximately a week ago after she was put on narcotics for pain related to the lumpectomy. She notes the blood to be at most a tablespoon, although it is hard to quantify because it is in the water of the toilet bowl and never outside. PAST MEDICAL HISTORY: Includes: 1. Triple negative right invasive ductal breast cancer. 2. Anxiety. 3. HSV 1. 4. Nephrolithiasis. 5. Nephrolithiasis with history of lithotripsy. 6. She has noted over the last several days she has had cramping in bilateral lower extremities, which is new in the area of her calves. 7. History of rectal bleeding as outlined in the body of this report. 8. History of vitamin D deficiency. 9. 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 10. New history of migraines. MEDICATIONS: 1. Valacyclovir 1 g daily. 2. Magnesium 400 mg daily. 3. Bactrim since . ALLERGIES: None. FAMILY HISTORY: Mother with metastatic cancer, potentially lung. Maternal cousin with breast cancer. SOCIAL HISTORY: Drinks 3 to 4 alcoholic beverages per week. No history of tobacco. She is a Mobile executive marketing assistant. REVIEW OF SYSTEMS: As per HPI, includes rectal bleeding as well as chest pain radiating to the neck and shoulder blades, shortness of breath, pleurisy. Otherwise, all other systems negative. PHYSICAL EXAMINATION GENERAL: Well appearing, sitting up, interactive, pleasant, no apparent distress. VITAL SIGNS: In the emergency room, 125/78, heart rate is 82, respiratory rate is between 15 and 23. She is 98% on room air. T-max 97.2. HEENT: Oropharynx is clear. She has moist mucous membranes. Sclerae are anicteric. LUNGS: Clear to auscultation. HEART: She has regular rate and rhythm. No murmurs, rubs, or gallops. She has an incision on her right breast. No surrounding erythema. No discharge. ABDOMEN: Soft, nontender, nondistended. EXTREMITIES: Warm and well perfused without pain. NEUROLOGIC: She is alert and oriented x3. Cranial nerves II through XII are intact. LABORATORY DATA: Hemoglobin 11.7, platelets 178, white blood cell count 6.4. Creatinine 0.76. Lactic acid 0.6. CRP is 24. BNP is 50. IMAGING: Reviewed. CTA chest and thorax, filling defect is noted in the right posterior subsegmental pulmonary artery as well as in the left lower lobe posterior segmental artery consistent with bilateral pulmonary emboli, postoperative changes in the right breast. ASSESSMENT AND PLAN: This is a 52-year-old female with recent diagnosis of right invasive ductal carcinoma, status post lumpectomy on 03/05/18, now presenting with shortness of breath, pleuritic chest pain followed by bilateral pulmonary embolism. 1. Bilateral pulmonary embolism. Discussed with Dr. Mcknight. I will admit this patient to his service, start on Lovenox. It has been a significant amount of time clearing the patient's history of rectal bleeding. This does found to be associated with her internal hemorrhoids as it is always worsening with dehydration and constipation and never present in its absence. We will proceed to start this patient on 1 mg/kg of Lovenox b.i.d. and institute a bowel regimen. She has currently had no blood over the last week. Additional changes were made by Dr. Mcknight. I will check CBC tomorrow. Also, bilateral lower extremity Dopplers given bilateral PEs as well as cramping she has been experiencing over the last several days. 2. Rectal bleeding as noted above. Maintain aggressive bowel regimen. Recheck CBC tomorrow. 3. Surgical site infection, appears to be improving, although not at baseline. She was switched from Keflex to Bactrim a week ago. She received a dose of ceftriaxone in the emergency room. I will order for tomorrow. 4. Constipation as indicated above. Aggressive bowel regimen. 5. DVT prophylaxis. Lovenox in addition to above. TIME SPENT: Greater than 45 minutes were spent on the admission of this patient , of which greater than half was spent [id number] with the patient. [id number]/[facility] #: [id number] ELSY
[2018-03-22] MEDS ORDERED: Melatonin 3 MG TAB PO ONE (20:25)
[2018-03-22] MEDS ORDERED: oxyCODONE TAB* 5 MG TAB ONE (20:25)
[2018-03-22] MEDS ORDERED: Apixaban* 5 MG TAB PO ONE (21:00)
[2018-03-22] MEDS ORDERED: HYDROmorphone INJ1* 1 MG/ML SYRINGE ONE (21:45)
[2018-03-22] MEDS: Melatonin 3 MG TAB PO SCH (22:51)
[2018-03-23] MEDS: HYDROmorphone INJ1* 1 MG/ML SYRINGE IV PRN ×4 (00:23→05:36)
[2018-03-23] MEDS: NS 0.9% 1000 ML* 1,000 ML IV SCH ×2 (00:30→08:31)
[2018-03-23] MEDS: Ondansetron INJ* 2 MG/ML VIAL IV PRN ×2 (02:35→08:03)
[2018-03-23] MEDS ORDERED: Enoxaparin(*) 60 MG/0.6 ML SYR SUBCUT SCH (03:00)
[2018-03-23] MEDS: Acetaminophen TAB* 325 MG PO PRN (08:15)
[2018-03-23] MEDS: Magnesium Oxide TAB* 400 MG PO SCH (08:16)
[2018-03-23] MEDS: Multivitamins/Minerals TAB PO SCH (08:16)
[2018-03-23] MEDS: ValACYclovir (*) 1 GM TAB PO SCH (08:16)
[2018-03-23] MEDS: Docusate CAP* 100 MG PO SCH (08:16)
[2018-03-23] MEDS: oxyCODONE TAB* 5 MG TAB PO PRN ×2 (09:50→19:27)
--- NOTE | 2018-03-23 11:29 | PN ---
Progress Note - Progress Note Date of Service: 03/23/18 SOAP: Subjective: []Admitted yesterday afternoon with new PEs. Pain with any movement and addition of IV dilaudid overnight helps with pain but causing a lot of nausea. Pain occurs with movement in bed, walking, and any increased resp. effort. Pain slightly diminished with PO oxycodone. Nausea improved following zofran. No BM today but passing gas. Medicaitons: Acetaminophen (Tylenol Tab*) 650 mg PO Q4H PRN PRN Reason: FEVER/PAIN Last Admin: 03/23/18 08:15 Dose: 650 mg Docusate Sodium (Colace Cap*) 200 mg PO DAILY [facility] Last Admin: 03/23/18 08:16 Dose: 200 mg Enoxaparin Sodium (Lovenox(*)) 100 mg SUBCUT DAILY [facility] Enoxaparin Sodium (Lovenox(*)) 60 mg SUBCUT Q12H [facility] Stop: 03/23/18 16:00 Ceftriaxone Sodium 1 gm/ (Sodium Chloride) 50 mls @ 200 mls/hr IVPB Q24H [facility] Sodium Chloride (Ns 0.9% 1000 Ml*) 1,000 mls @ 125 mls/hr IV PER RATE [facility] Stop: 03/23/18 22:59 Last Admin: 03/23/18 08:31 Dose: 125 mls/hr Lorazepam (Ativan Tab(*)) 0.5 mg PO Q4H PRN PRN Reason: ANXIETY Magnesium Hydroxide (Milk Of Magnesia Liq*) 30 ml PO Q4H PRN PRN Reason: CONSTIPATION Magnesium Oxide (Magox 400 Tab*) 400 mg PO DAILY [facility] Last Admin: 03/23/18 08:16 Dose: 400 mg Melatonin (Melatonin) 3 mg PO BEDTIME [facility] Last Admin: 03/22/18 22:51 Dose: Not Given Morphine Sulfate (Morphine Inj ((Syringe))*) 2 mg IV Q2H PRN PRN Reason: PAIN Multivitamins/Minerals (Theragran/Minerals Tab*) 1 tab PO DAILY [facility] Last Admin: 03/23/18 08:16 Dose: 1 tab Ondansetron HCl (Zofran Inj*) 4 mg IV Q4H PRN PRN Reason: NAUSEA/VOMITING Last Admin: 03/23/18 08:03 Dose: 4 mg Oxycodone HCl (Roxycodone Tab*) 5 mg PO Q4H PRN PRN Reason: PAIN Last Admin: 03/23/18 09:50 Dose: 5 mg Valacyclovir HCl (Valtrex 1 Gm(*)) 1 gm PO DAILY [facility]; Protocol Last Admin: 03/23/18 08:16 Dose: 1 gm Objective: [] Vital Signs Temp Pulse Resp BP Pulse Ox 98.2 F 85 17 115/74 93 03/23/18 07:15 03/23/18 07:27 03/23/18 09:50 03/23/18 07:27 03/23/18 07:27 A&Ox3, EOMI, FIGUEROA, good strength=bilat., neuro grossly non-focal HRR, S1S2 without murmur or thrill LS clear, though pain occurs with deep inspiration and pt. winces with any movement - no accessory muscle use +BS, abd. soft and non-tender Laboratory Results - last 24 hr 03/22/18 03/22/18 03/22/18 11:26 11:26 11:26 WBC 6.4 RBC 3.33 L Hgb 11.7 L Hct 34 L MCV 101 H MCH 35 H MCHC 35 RDW 13 Plt Count 178 MPV 7.9 Neut % (Auto) 74.0 Lymph % (Auto) 17.8 L [place] % (Auto) 6.8 Eos % (Auto) 1.1 Baso % (Auto) 0.3 Absolute Neuts (auto) 4.7 Absolute Lymphs (auto) 1.1 Absolute Monos (auto) 0.4 Absolute Eos (auto) 0.1 Absolute Basos (auto) 0 Absolute Nucleated RBC 0 Nucleated RBC % 0 APTT 91.8 H Sodium 138 Potassium 4.0 Chloride 107 Carbon Dioxide 24 Anion Gap 7 BUN 16 Creatinine 0.76 Est GFR ( Amer) 97.5 Est GFR (Non-Af Amer) 80.6 BUN/Creatinine Ratio 21.1 H Glucose 111 H Lactic Acid Calcium 8.6 Total Bilirubin 0.50 AST 21 ALT 12 Alkaline Phosphatase 69 Total Creatine Kinase 112 CK-MB (CK-2) 2.0 Troponin I 0.00 C-Reactive Protein 24.05 H B-Natriuretic Peptide Total Protein 7.2 Albumin 4.0 Globulin 3.2 Albumin/Globulin Ratio 1.3 Urine Color Urine Appearance Urine pH Ur Specific [place] Urine Protein Urine Ketones Urine Blood Urine Nitrate Urine Bilirubin Urine Urobilinogen Ur Leukocyte Esterase Urine WBC (Auto) Urine RBC (Auto) Ur Squamous Epith Cells Urine Bacteria Urine Glucose 03/22/18 03/22/18 03/22/18 11:26 11:26 13:50 WBC RBC Hgb Hct MCV MCH MCHC RDW Plt Count MPV Neut % (Auto) Lymph % (Auto) [place] % (Auto) Eos % (Auto) Baso % (Auto) Absolute Neuts (auto) Absolute Lymphs (auto) Absolute Monos (auto) Absolute Eos (auto) Absolute Basos (auto) Absolute Nucleated RBC Nucleated RBC % APTT Sodium Potassium Chloride Carbon Dioxide Anion Gap BUN Creatinine Est GFR ( Amer) Est GFR (Non-Af Amer) BUN/Creatinine Ratio Glucose Lactic Acid 0.6 Calcium Total Bilirubin AST ALT Alkaline Phosphatase Total Creatine Kinase CK-MB (CK-2) Troponin I C-Reactive Protein B-Natriuretic Peptide 50 Total Protein Albumin Globulin Albumin/Globulin Ratio Urine Color Straw Urine Appearance Clear Urine pH 6.0 Ur Specific [place] 1.041 H Urine Protein Negative Urine Ketones Negative Urine Blood 2+ A Urine Nitrate Negative Urine Bilirubin Negative Urine Urobilinogen Negative Ur Leukocyte Esterase Negative Urine WBC (Auto) Trace(0-5/hpf) Urine RBC (Auto) 3+(>10/hpf) A Ur Squamous Epith Cells Present A Urine Bacteria Absent Urine Glucose Negative Assessment: []52 yo female recently diagnosed with pT1N0 triple negative breast cancer of the right breast s/p lumpectomy c/b wound infection and now admitted with new bilat. PEs. She is hemodynamically stable, however cont.'s to have significant pain with minimal movement and deep breaths. Plan: []1. PE: will transition to daily Lovenox dosing tomorrow, 1.5mg/kg/day (100 mg) - cont.'d pain should dissipate over the next several days with use of anti- coagulation - will check an anti-Xa level as outpatient (03/29 approx. 3 hrs after inj) 2. Pain: stop dilaudid d/t significant nausea - cont. Oxycodone and can go home with this for a couple days, acute use - add IV morphine PRN 3. Nausea: 2/2 narcotics - add PO ativan PRN use, may have synergetic affect with narcotics for pain control as well 4. Post-surgical wound: does not appear actively infected and no leukocytosis or fevers - surgery to see her today and will weigh in on cont.'d abx. 5. Cancer: plan for ddAC-T SHARONA (likely in next week) Full Code Dispo: expect home tomorrow
[2018-03-23] MEDS: LORazepam TAB(*) 0.5 MG PO PRN (11:51)
--- NOTE | 2018-03-23 12:32 | PN ---
Progress Note - Progress Note Date of Service: 03/23/18 Note: Surgery Progress: S: ~ 2.5 wks postop. Admitted w/ PE; still having some chest pain, but improving. States her breast incision is mostly itchy. No pain. O: Right breast wound: no sig erythema; superficially open wound, lateral aspect , measuring 3 x 0.3 x 0.2 cm, with intact, dry eschar. No expressible drainage. Minimal tenderness. C&S from 03/18: no growth. A: healing Right breast wound w/o evidence of active infection; suture removed; no wound dressing req'd, though she may want to tuck a plain gauze or telfa in her bra upon discharge. P: I will recheck tomorrow before she is discharged, then office f/u in 5-7 d. I don't believe further antibiotics are indicated at this point.
[2018-03-23] MEDS: Morphine VIAL* 4 MG/ML VIAL (1 ml vial) IV PRN ×2 (14:27→22:05)
[2018-03-23] MEDS ORDERED: Enoxaparin(*) 60 MG/0.6 ML SYR SUBCUT ONE (15:00)
[2018-03-23] MEDS ORDERED: cefTRIAXone(*) 1 GM in NS 0.9% 50 ML* 50 ML IVPB SCH (15:00)
[2018-03-23] MEDS: Melatonin 3 MG TAB PO SCH (20:50)
[2018-03-24] MEDS: oxyCODONE TAB* 5 MG TAB PO PRN ×2 (03:26→11:16)
[2018-03-24] MEDS: Acetaminophen TAB* 325 MG PO PRN ×2 (04:29→11:15)
[2018-03-24] MEDS ORDERED: Enoxaparin(*) 100 MG/ML SYR SUBCUT SCH (06:00)
[2018-03-24] MEDS: Docusate CAP* 100 MG PO SCH (09:33)
[2018-03-24] MEDS: Magnesium Oxide TAB* 400 MG PO SCH (09:33)
[2018-03-24] MEDS: ValACYclovir (*) 1 GM TAB PO SCH (09:34)
[2018-03-24] MEDS: Multivitamins/Minerals TAB PO SCH (09:34)
--- NOTE | 2018-03-24 11:17 | PN ---
Progress Note - Progress Note Date of Service: 03/24/18 Note: Surgery follow up S: Feels somewhat better. Less chest pain/SOB w/ exertion. No c/o re: Right breast (pain, drainage, or otherwise) O: Vital Signs - 8 hr 03/24/18 03/24/18 03/24/18 03:26 04:12 05:36 Temperature 99.1 F Pulse Rate 89 Respiratory 18 18 16 Rate Blood Pressure 110/73 (mmHg) O2 Sat by Pulse 93 Oximetry 03/24/18 03/24/18 07:49 08:00 Temperature 98.5 F Pulse Rate 78 Respiratory 16 16 Rate Blood Pressure 119/80 (mmHg) O2 Sat by Pulse 91 Oximetry Tmax 99.5 Right breast: much the same as yesterday, i.e., no sig erythema or tenderness; no expressible exudate. Lateral aspect of wound is open superficially w/o change from 03/23/18. No evidence of active infection. A: s/p wide excision Right breast cancer w/ SLN bx, s/p oral abx tx for postop wound infection, improving. PE, on Lovenox. P: likely d/c home today per Cleo Canas NP. She should maintain a layer of protection (gauze or Telfa) over the incision, but just tucked into her bra. She will contact our office to arrange f/u within the next 4-7 days. I do not believe there is any indication for further antibiotic tx.
[2018-03-24] MEDS: LORazepam TAB(*) 0.5 MG PO PRN (11:51)
--- NOTE | 2018-03-24 12:11 | DS ---
- Discharge Summary Admission Date: 03/22/2018 Discharge Date: 03/24/2018 Discharge Diagnosis: 1. Pulmonary Embolism, without cor pulmonale: no on Lovenox, hemodynamically stable 2. Chest pain: 2/2 PE, slowly improving 3. Post operative infection: resolved 4. Triple negative stage IA breast cancer, right: initiate chemotherapy next week Discharge Medications: Medication Instructions Recorded Confirmed Type Magnesium Oxide TAB* [MagOx 400 400 mg PO DAILY 03/22/18 03/22/18 History TAB*] Multivitamins/Minerals TAB* 1 tab PO DAILY 03/22/18 03/22/18 History [Theragran/minerals TAB*] ValACYclovir (*) [Valtrex 1 GM(*)] 1 gm PO DAILY 03/22/18 03/22/18 History Acetaminophen TAB* [Tylenol TAB*] 650 mg PO Q4H PRN tab 03/24/18 Rx Docusate CAP* [Colace Cap*] 200 mg PO DAILY PRN cap 03/24/18 Rx Enoxaparin(*) [Lovenox(*)] 100 mg SUBCUT Q24H #30 syringe 03/24/18 Rx LORazepam TAB(*) [Ativan 0.5 MG 0.5 mg PO Q6HR #20 tab MDD 4 tabs 03/24/18 Rx TAB (*)] Melatonin 3 mg PO BEDTIME tab 03/24/18 Rx OLANzapine TAB* [Zyprexa 10 MG 10 mg PO BEDTIME #4 tab 03/24/18 Rx TAB*] Ondansetron TAB* [Zofran 4 MG Tab*] 4 mg PO Q4HR PRN #6 tab 03/24/18 Rx Prochlorperazine TAB* [Compazine 10 mg PO Q6H PRN #6 tab 03/24/18 Rx Tab*] oxyCODONE TAB* [Roxycodone TAB 5 5 mg PO Q4H PRN #60 tab MDD 6 tabs 03/24/18 Rx mg*] Hospital Course: Please see admission note for full H&P, however, briefly, Mrs. Gay was recently diagnosed with a triple negative [id number] breast cancer of the right breast. She underwent lumpectomy of 03/05/18 without immediate complications, however unfortunately then developed a post operative cellulitis. She received Keflex for this initially and then on 03/18 her abx. coverage was extended with Bactrim due to increased tenderness and some continued drainage. On 03/22 she contacted our office with complaint of right sided chest pain and SOB new from her baseline. She was instructed to go the ER, however at the same time she contacted her surgeon and was seen by Dr. Shahid and then sent to the ER. In the ER she was hemodynamically stable with normal O2 on RA. A CTA of the chest revealing bilat. PEs. Due to her significant chest pain she was admitted for management and started on Lovenox 1mg/kg BID subq per recommendation of the on- call oncologist. She remained hemodynamically stable throughout her stay and has had normal O2 SATs with ambulation on room air, however after approximately 24 hours of anti-coagulation she cont.'d to experience pain with exertion, SOB, and pain with deep inspiration. She had significant nausea with IV dilaudid with vomiting and we attempted to modify her pain management. Today she is feeling a little better and feels confident she can return home. She was transitioned to daily dosing, Lovenox sq 1.5 mg/kg/day (100 mg), this AM. She has learned self injections and denies concerns. To confirm correct dosing we will check an anti-Xa level on Thursday 03/29. Her right breast wound no longer appears infected (surgical team agreed) and she should be stable to start chemotherapy for her breast cancer next week; we will plan C1D1 ddAC-T on 04/01. She will go home with both oxycodone and ativan for PRN use and we discussed the plan of care at length. As this is considered a provoked PE she will likely complete her anti-coagulation after completing her cancer therapy. >40 min. spent with >50% face to face counseling.
[2018-03-24 12:37] VITALS: BP 115/71
== END 2018-03-24 14:45 | disposition home or self-care (01) | DRG 134 ==
LOC: ED 10:41 → MED 14:55
PROVIDERS: ADMIT Internal Medicine; ATTEND Internal Medicine Hematology & Oncology
DX: I26.99 Other pulmonary embolism without acute cor pulmonale (principal); T81.4XXA Infection following a procedure, initial encounter; L03.313 Cellulitis of chest wall; K64.8 Other hemorrhoids; E86.0 Dehydration; K59.00 Constipation, unspecified; Y83.9 Surgical procedure, unspecified as the cause of abnormal reaction of the patient, or of later complication, without mention of misadventure at the time of the procedure; R11.0 Nausea; T40.2X5A Adverse effect of other opioids, initial encounter; Y92.239 Unspecified place in hospital as the place of occurrence of the external cause; A60.00 Herpesviral infection of urogenital system, unspecified; K63.5 Polyp of colon; F41.9 Anxiety disorder, unspecified; G43.909 Migraine, unspecified, not intractable, without status migrainosus; C50.911 Malignant neoplasm of unspecified site of right female breast; Y92.9 Unspecified place or not applicable; Z85.3 Personal history of malignant neoplasm of breast; Z87.442 Personal history of urinary calculi; Z80.3 Family history of malignant neoplasm of breast; Z80.1 Family history of malignant neoplasm of trachea, bronchus and lung; Z82.49 Family history of ischemic heart disease and other diseases of the circulatory system; Z83.6 Family history of other diseases of the respiratory system; Z72.89 Other problems related to lifestyle; Z17.1 Estrogen receptor negative status [ER-]; Z79.01 Long term (current) use of anticoagulants
CPT/HCPCS: 36415; 71275; 80053; 81003; 81015; 82550; 82553; 83605; 83880; 84484; 85025; 85730; 86140; 87040; 87077; 87086; 93005; 93970; 99232; 99239; 99284; A9270-GY; J0696; J1170; J1642; J1650; J2270; J2405; Q9967